=== PATIENT | female | born 1980 | race Caucasian/White ===

== ENCOUNTER → 2018-08-24 | Outpatient (REF) | payer OTHER ==
[~2018-08-24] MED LIST: DILAUDID4 MG PO; LEXAPRO20 MG OR; MACROBID100 MG PO; PERCOCET 5/325M1 TAB OR; PERCOCET 5/325M1 TAB PO; VALIUM5 MG PO; XANAX0.5 MG OR
[2018-08-24 09:33] LABS: HEMATOCRIT 46.1 % (37.0-47.0); HEMOGLOBIN 14.9 g/dl (12.0-16.0); MEAN CELL VOLUME 97.7 fL CALC (80.0-100.0); MEAN CORPUSCULAR HGB 31.6 pG CALC (26.0-32.0); MEAN CORPUSCULAR HGB CONC 32.3 g/L CALC (32.0-36.0); RED BLOOD COUNT 4.72 mill/uL (4.20-5.60); RED CELL DISTRI WIDTH 13.1 % (11.5-15.5)
[2018-08-24 10:10] LABS: ALKALINE PHOSPHATASE 71 u/l (38-126); ANION GAP 12 (6-22 (CALC)); BILIRUBIN, TOTAL 0.2 mg/dL (0.0-1.4); BUN 9 mg/dL (7-17); BUN/CREATININE RATIO 15 (12-20 (CALC)); CARBON DIOXIDE 28 mmol/l (22-30); CHLORIDE 106 mmol/l (95-108); CREATININE 0.6 mg/dL (0.5-1.0); GFR > 60 ML/MIN (>=60 (CALC)); GFR FOR AFR.AMER. > 60 ML/MIN (>=60 (CALC)); POTASSIUM 4.4 mmol/l (3.5-5.1); SGOT/AST 19 u/l (14-36); SODIUM 141 mmol/l (137-146); TOTAL PROTEIN 6.9 g/dL (6.3-8.2)
[2018-08-24 10:35] LABS: TSH, 3RD GENERATION 1.23 uIU/mL (0.47 - 4.68)
== END | disposition home or self-care (01) | DRG 880 ==
LOC: LAB 08:48
PROVIDERS: ATTEND Nurse Practitioner
DX: F41.9 Anxiety disorder, unspecified (principal); R20.0 Anesthesia of skin; R53.83 Other fatigue

== ENCOUNTER 2018-12-19 12:33 | Emergency (ER) | payer OTHER ==
[~2018-12-19] VITALS: Ht 162.6 cm; Wt 65.0 kg
[2018-12-19] MEDS ORDERED: OMEPRAZOLE20 M2 PO (12:51)
[2018-12-19] MEDS ORDERED: PERCOCET 10/31 COMBO PO (15:15)
[2018-12-19 15:26] VITALS: BP 158/62
== END 2018-12-19 15:26 | disposition home or self-care (01) | DRG 563 ==
LOC: ED 12:33
DX: S82.102A Unspecified fracture of upper end of left tibia, initial encounter for closed fracture (principal); S82.832A Other fracture of upper and lower end of left fibula, initial encounter for closed fracture; F17.200 Nicotine dependence, unspecified, uncomplicated; X50.0XXA Overexertion from strenuous movement or load, initial encounter; Y93.64 Activity, baseball; Y92.830 Public park as the place of occurrence of the external cause
CPT/HCPCS: L1830

== ENCOUNTER 2018-12-25 18:06 | Emergency (ER) | payer OTHER ==
[~2018-12-25] VITALS: Ht 162.6 cm; Wt 63.6 kg
[~2018-12-25 18:06] MED LIST changes: +OMEPRAZOLE20 M2 PO; +PERCOCET 10/31 COMBO PO
[2018-12-25] MEDS ORDERED: LORTAB 5/3255 MG PO (19:03)
[2018-12-25 19:44] LABS: HEMATOCRIT 38.6 % (37.0-47.0); IMMATURE GRANULOCYTES 0.2 % (0.0-5.0); MEAN CELL VOLUME 92.3 fL CALC (80.0-100.0); MEAN CORPUSCULAR HGB 31.1 pG CALC (26.0-32.0); MEAN CORPUSCULAR HGB CONC 33.7 g/L CALC (32.0-36.0); NEUT# 3.77 thou/uL (2.00-7.15); RED BLOOD COUNT 4.18 mill/uL (4.20-5.60); RED CELL DISTRI WIDTH 12.9 % (11.5-15.5)
[2018-12-25 20:01] LABS: PROTHROMBIN TIME 10.7 SECONDS (9.0-12.5)
[2018-12-25 20:24] LABS: ALBUMIN 4.2 g/dL (3.2-5.0); ALKALINE PHOSPHATASE 71 u/l (38-126); ANION GAP 15 (6-22 (CALC)); BUN 10 mg/dL (7-17); BUN/CREATININE RATIO 21 (12-20 (CALC)); CARBON DIOXIDE 28 mmol/l (22-30); CHLORIDE 102 mmol/l (95-108); CREATININE 0.5 mg/dL (0.5-1.0); GFR > 60 ML/MIN (>=60 (CALC)); GFR FOR AFR.AMER. > 60 ML/MIN (>=60 (CALC)); POTASSIUM 3.9 mmol/l (3.5-5.1); SGOT/AST 20 u/l (14-36); SODIUM 141 mmol/l (137-146); TOTAL PROTEIN 7.3 g/dL (6.3-8.2)
[2018-12-25 20:25] LABS: BILIRUBIN, TOTAL 0.5 mg/dL (0.0-1.4)
[2018-12-25] MEDS ORDERED: DOXYCYCL HYC100 MG PO (21:54)
[2018-12-25 22:14] VITALS: BP 122/71
== END 2018-12-25 22:14 | disposition home or self-care (01) | DRG 204 ==
LOC: ED 18:06
PROVIDERS: Emergency Medicine
DX: R04.2 Hemoptysis (principal); F17.200 Nicotine dependence, unspecified, uncomplicated
CPT/HCPCS: Q9967